=== PATIENT | male | born 1960 | race Caucasian/White ===

== ENCOUNTER 2022-01-20 11:33 | Emergency (ER) | payer OTHER, SELFPAY ==
[2022-01-20 11:53] VITALS: BP 124/82; PULSE 91; RESP 16; TEMP 36.8; O2SAT 98
--- NOTE | 2022-01-20 14:44 | CTR_ITS ---
PROCEDURE INFORMATION: Exam: CT Abdomen And Pelvis Without Contrast Exam date and time: 01/20/2022 3:03 PM Age: 61 years old Clinical indication: Nausea and vomiting; Abdominal pain; Generalized; Additional info: Abd pain TECHNIQUE: Imaging protocol: Computed tomography of the abdomen and pelvis without contrast. Radiation optimization: All CT scans at this facility use at least one of these dose optimization techniques: automated exposure control; mA and/or kV adjustment per patient size (includes targeted exams where dose is matched to clinical indication); or iterative reconstruction. COMPARISON: No relevant prior studies available. RADIATION DOSE METRICS: Total DLP (mGy-cm): 1321.45 FINDINGS: Liver: No evident mass. Gallbladder and bile ducts: Normal. No calcified stones. No ductal dilation. Pancreas: Normal. No ductal dilation. Spleen: Normal. No splenomegaly. Adrenal glands: Normal. No mass. Kidneys and ureters: Subcentimeter cyst seen in the upper pole of the left kidney. A couple punctate nonobstructing stones noted in the left kidney. No hydronephrosis. Stomach and bowel: Unremarkable. No obstruction. No mucosal thickening. Appendix: No evidence of appendicitis. Intraperitoneal space: Unremarkable. No free air. No significant fluid collection. Vasculature: Unremarkable. No abdominal aortic aneurysm. Lymph nodes: Mildly prominent morphologically normal mesenteric lymph nodes, likely reactive. Urinary bladder: Unremarkable as visualized. Reproductive: Unremarkable as visualized. Bones/joints: No acute fracture. Soft tissues: Partially visualized rounded fluid-filled structure in the distal left inguinal canal without communication to the abdomen measuring 7.0 x 7.6 cm series 4, image 97. CT/CT abdomen pelvis wo con [id number] IMPRESSION: 1. Partially visualized fluid filled structure in the distal left inguinal canal which may reflect a large hydrocele or encysted hydrocele. This can be further evaluated with scrotal ultrasound. 2. A couple punctate nonobstructing stones in the left kidney. COMMENTS: Consistent with the [employer]'s Incidental Findings Committee white paper (J Am Meena Radiol 2018): Any incidental renal lesion less than 1 cm or classified as too small to characterize, or any incidental cystic renal lesion characterized as simple-appearing, is likely benign. No follow-up imaging is recommended for these lesions per consensus recommendations based on imaging criteria.
--- NOTE | 2022-01-20 14:53 | ED_ITS ---
HPI - Abdominal Pain General: Chief Complaint: Abdominal Pain Stated Complaint: vomiting Time Seen by Provider: 01/20/22 14:32 Source: patient Mode of arrival: ambulatory Limitations: no limitations History of Present Illness: 61-year-old male who states that he started having vomiting last night. States had multiple episodes of vomiting since last night and now is having some diffuse abdominal cramping. He states he had a cough as well along with a sore throat after the vomiting. He denies any chest pain denies any fevers denies any worsening proving factors he has not taken any meds. He still having bowel movements some slight diarrhea denies any blood in his stool or vomitus. Associated Symptoms: Reports nausea and vomiting; Denies chills, dysuria and fever(s) Review of Systems Const: Denies: fever(s), chills, body aches or change in appetite Eyes: Denies: blurry vision or eye discomfort ENMT: Denies: throat pain or dental pain Card: Denies: chest pain Resp: Reports: non-productive cough GI: Reports: abdominal pain, nausea and vomiting : Denies: dysuria Musc: Denies: neck pain or back pain Skin/Breast: Denies: rash Neuro: Denies: headache(s) Psych: Denies: depression Vincent/Lymph: Denies: easy bruising All/Imm: Denies: urticaria [facility] ED PFSH: Medical History (Updated 01/20/22 @ 16:36 by Kami Antoine MD) No pertinent past medical history Social History Substance/Drug Use: never Physical Exam Const: COMMON NORMALS: no acute distress, patient oriented x3 and healthy appe aring HENMT: COMMON NORMALS: normocephalic and atraumatic HEAD & SCALP: normocephalic and atraumatic Eye: COMMON NORMALS: Equal, round and reactive pupils present and EOMs intact bilaterally PUPIL: Yes Equal, round and reactive pupils present Neck/C-Spine: COMMON NORMALS: full ROM and supple Chest: COMMONS NORMALS: normal inspection of the chest and normal palpation of entire chest wall Resp: COMMON NORMALS: normal respiratory effort, No retractions, No use of accessory muscles and clear to auscultation bilaterally AUSCULTATION: clear to auscultation bilaterally Cardio: COMMON NORMALS: regular rate, regular rhythm and No murmurs present (Cardio) RATE: regular rate RHYTHM: regular rhythm GI: COMMON NORMALS: Normal to inspection, nondistended, normoactive bowel sounds present, Soft to palpation, non-tender and no masses PALPATION: Yes Soft to palpation Extremity: COMMON NORMALS: normal to inspection and full ROM Neuro: COMMON NORMALS: patient oriented x3, moves all extremities and no focal motor deficits Psych: COMMON NORMALS: mental status grossly normal, Normal thought process present and cooperative THOUGHT PROCESS: Normal thought process present Skin: COMMON NORMALS: no rashes or lesions noted and no wounds GENERAL SKIN EXAM: no rashes or lesions noted Course Vital Signs: Vital signs: Vital Signs Temperature 98.2 F 01/20/22 11:53 Pulse Rate 91 01/20/22 11:53 Respiratory Rate 16 01/20/22 11:53 Blood Pressure 124/82 01/20/22 11:53 Pulse Oximetry 98 01/20/22 11:53 MDM - Abdominal Pain Medical Decision Making Patient presents here with abdominal pain he does have a hydrocele that he knows about and is actually scheduled to have surgery. He has no acute findings here CT is otherwise normal blood works normal he feels improved after Zofran we will prescribe him Zofran for home he is to follow-up with PCP and return if worsening. Lab Data : 01/20/22 14:30 01/20/22 14:30 Labs/Radiology: Radiology Impressions Abdomen/Pelvis CT 01/20/22 14:44 IMPRESSION: 1. Partially visualized fluid filled structure in the distal left inguinal canal which may reflect a large hydrocele or encysted hydrocele. This can be further evaluated with scrotal ultrasound. 2. A couple punctate nonobstructing stones in the left kidney. COMMENTS: Consistent with the [employer]'s Incidental Findings Committee white paper (J Am Meena Radiol 2018): Any incidental renal lesion less than 1 cm or classified as too small to characterize, or any incidental cystic renal lesion characterized as simple-appearing, is likely benign. No follow-up imaging is recommended for these lesions per consensus recommendations based on imaging criteria. Laboratory Results WBC 9.5 10^3/uL (4.0-10.0) 01/20/22 14:30 RBC 5.67 10^6/uL (4.1-5.3) H 01/20/22 14:30 Hgb 16.4 g/dL (11.7-16.6) 01/20/22 14:30 Hct 49.2 % (42.0-52.0) 01/20/22 14:30 MCV 86.8 fl (80-94) 01/20/22 14:30 MCH 28.9 pg (28.0-34.0) 01/20/22 14: MCHC 33.3 g/dL (30.0-36.0) 01/20/22 14: RDW 12.7 % (12.1-15.1) 01/20/22 14: Plt Count 196 10^3/cmm (130-400) 01/20/22 14: MPV 10.9 fL (7.4-10.4) H 01/20/22 14:30 Neut % (Auto) 87.6 % 01/20/22 14: Lymph % (Auto) 7.2 % 01/20/22 14: [place] % (Auto) 4.3 % 01/20/22 14:30 Eos % (Auto) 0.2 % 01/20/22 14:30 Baso % (Auto) 0.2 % 01/20/22 14:30 Neut # (Auto) 8.27 10^3/uL (1.8-7.7) H 01/20/22 14:30 Lymph # (Auto) 0.7 10^3/uL (0.8-4.8) L 01/20/22 14:30 [place] # (Auto) 0.4 10^3/uL (0.2-0.9) 01/20/22 14:30 Eos # (Auto) 0.0 10^3/uL (0.0-0.8) 01/20/22 14: Baso # (Auto) 0.0 10^3/uL (0.0-0.1) 01/20/22: Nucleated RBC % (auto) 0 % 01/20/22 14: Nucleated RBCs # 0.0 /100WBC 01/20/22 14:30 Sodium 139 mmol/L (136-145) 01/20/22 14:30 Potassium 4.1 mmol/L (3.5-5.1) 01/20/22 14:30 Chloride 102 mmol/L (98-107) 01/20/22 14:30 Carbon Dioxide 27 mmol/L (22-29) 01/20/22 14:30 Anion Gap 14.1 (5-19) 01/20/22 14:30 BUN 12 mg/dL (8-23) 01/20/22 14:30 Creatinine 1.0 mg/dL (0.7-1.2) 01/20/22 14:30 GFR Calculation 75.5 mL/min (90-130) L 01/20/22 14:30 Glucose 123 mg/dL (65-115) H 01/20/22 14:30 Calculated Osmolality 289 mOsm/kg (285-295) 01/20/22 14:30 Calcium 8.6 mg/dL (8.5-10.5) 01/20/22 14:30 Total Bilirubin 0.7 mg/dL (0.15-1.2) 01/20/22 14:30 AST 20 U/L (0-40) 01/20/22 14:30 ALT 38 U/L (0-41) 01/20/22 14:30 Alkaline Phosphatase 44 IU/L (40-130) 01/20/22 14:30 Total Protein 7.1 g/dL (6.6-8.7) 01/20/22 14:30 Albumin 4.1 g/dL (3.5-5.2) 01/20/22 14:30 Globulin 3.0 g/dL (1.3-4.6) 01/20/22 14:30 Lipase 15 U/L (13-60) 01/20/22 14:30 Urine Color Yellow (Yellow) 01/20/22 14:40 Urine Appearance Clear (CLEAR) 01/20/22 14:40 Urine pH 5 (5-7) 01/20/22 14:40 Ur Specific [place] 1.020 (1.005-1.030) 01/20/22 14:40 Urine Protein Neg (Negative) 01/20/22 14:40 Urine Glucose (UA) Norm (Normal) 01/20/22 14:40 Urine Ketones Negative (Negative) 01/20/22 14:40 Urine Blood Neg (Negative) 01/20/22 14:40 Urine Nitrate Negative (Negative) 01/20/22 14:40 Urine Bilirubin Neg (Negative) 01/20/22 14:40 Urine Urobilinogen Norm mg/dL (Negative) 01/20/22 14:40 Ur Leukocyte Esterase Negative (Negative) 01/20/22 14:40 SARS-CoV-2 Ag (Rapid) Negative (Negative) 01/20/22 15:50 Discharge Plan Discharge Patient Disposition: Home Clinical Impression: Abdominal pain, Hydrocele Prescriptions: New ondansetron 4 mg tablet,disintegrating 4 mg PO Q6H PRN (Reason: nausea and vomiting) Qty: 14 0RF No Action Zyrtec 10 mg Tablet 10 mg PO DAILY 0RF omeprazole 20 mg Tablet,Delayed Release (Dr/Ec) 20 mg PO DAILY 0RF Discharge Orders: Discharge ED (Routine); Ordered 01/20/22 Ordered By: Kami Antoine Discharge Diet: Advance as tolerated Discharge Activity: Resume usual activity Patient Instructions: Abdominal Pain (ED) Coding Level of Care Code ED 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
[2022-01-20 14:54] VITALS: BP 134/82; PULSE 88; RESP 15; O2SAT 98
[2022-01-20 14:58] LABS: Basophils % 0.2 %; Eosinophils % 0.2 %; Hematocrit 49.2 % (42.0-52.0); Hemoglobin 16.4 g/dL (11.7-16.6); Lymphocytes # 0.7 10^3/uL (0.8-4.8); Lymphocytes % 7.2 %; Mean Corpuscular HGB Conc 33.3 g/dL (30.0-36.0); Mean Corpuscular Hemoglobin 28.9 pg (28.0-34.0); Mean Corpuscular Volume 86.8 fl (80-94); Mean Platelet Volume 10.9 fL (7.4-10.4); Monocytes # 0.4 10^3/uL (0.2-0.9); Monocytes % 4.3 %; Neutrophils # 8.27 10^3/uL (1.8-7.7); Neutrophils % 87.6 %; Nucleated Red Blood Cells % 0 %; Platelet Count 196 10^3/cmm (130-400); Red Blood Count 5.67 10^6/uL (4.1-5.3); Red Cell Distribution Width 12.7 % (12.1-15.1); White Blood Count 9.5 10^3/uL (4.0-10.0)
[2022-01-20 15:11] LABS: Alanine Aminotransferase 38 U/L (0-41); Albumin Level 4.1 g/dL (3.5-5.2); Alkaline Phosphatase 44 IU/L (40-130); Anion Gap 14.1 (5-19); Aspartate Amino Transferase 20 U/L (0-40); Blood Urea Nitrogen 12 mg/dL (8-23); Calcium 8.6 mg/dL (8.5-10.5); Carbon Dioxide 27 mmol/L (22-29); Chloride 102 mmol/L (98-107); Glomerular Filtration Rate 75.5 mL/min (90-130); Glucose 123 mg/dL (65-115); Lipase 15 U/L (13-60); Osmolality Calculated 289 mOsm/kg (285-295); Potassium 4.1 mmol/L (3.5-5.1); Sodium 139 mmol/L (136-145); Total Bilirubin 0.7 mg/dL (0.15-1.2); Total Protein 7.1 g/dL (6.6-8.7)
[2022-01-20 15:24] VITALS: BP 131/88; PULSE 85; RESP 14; O2SAT 97
[2022-01-20] MEDS: sodium chloride 0.9% 1,000 ML 999 ML IV (15:34)
[2022-01-20] MEDS: ondansetron 2 mg/ML SDV 2 mL 4 MG IVP (15:34)
[2022-01-20 16:01] LABS: Add Urine Microscopic? NO; Charge for UA Resulting for Rev
--- NOTE | 2022-01-20 16:01 | USR_ITS ---
PROCEDURE INFORMATION: Exam: US Scrotum Exam date and time: 01/20/2022 4:15 PM Age: 61 years old Clinical indication: Other: Abd pain see CT; Patient HX: Known hydroceles; Additional info: Testicle swelling TECHNIQUE: Imaging protocol: Real-time ultrasound of the scrotum and contents with color Doppler and image documentation. COMPARISON: CT abdomen pelvis wo con [id number] 01/20/2022 3:03 PM FINDINGS: Right testicle: Right testicle measures 3.8 x 2.3 x 2.1 cm. No mass. No torsion. Normal vascular flow. Left testicle: Left testicle measures 4.4 x 2.5 x 2.8 cm. No mass. No torsion. Normal vascular flow. Epididymides: Normal. Scrotum: Large volume left hydrocele. Moderate volume right hydrocele. US/US scrotum [id number] IMPRESSION: Large volume left hydrocele and moderate volume right hydrocele. This would correlate to the findings seen on prior CT. Otherwise, no acute findings.
[2022-01-20 16:05] LABS: Urine Appearance Clear (CLEAR); Urine Color Yellow (Yellow); pH Urine 5 (5-7)
[2022-01-20 16:06] LABS: Bilirubin Urine Neg (Negative); Blood Urine Neg (Negative); Glucose Urine UA Norm (Normal); Ketones Urine Negative (Negative); Leukocyte Esterase Urine Negative (Negative); Nitrate Urine Negative (Negative); Protein Urine Neg (Negative); Urobilinogen Urine Norm (Negative)
[2022-01-20 16:22] LABS: SARS Covid-2 Antigen Negative (Negative)
[2022-01-20 16:24] VITALS: BP 125/75; PULSE 91; RESP 15; O2SAT 98
[2022-01-20 17:16] VITALS: BP 122/65; PULSE 87; RESP 15; O2SAT 95
== END 2022-01-20 17:18 | disposition home or self-care (01) ==
PROVIDERS: Emergency Medicine; Emergency Provider Emergency Medicine
DX: R10.9 Unspecified abdominal pain (principal); N43.3 Hydrocele, unspecified; Z20.822 Contact with and (suspected) exposure to COVID-19
CPT/HCPCS: 74176; 76870; 80053; 81003; 83690; 85025; 87426; 96374; 99285; J2405; J7030